=== PATIENT | male | born 1980 | race Caucasian/White ===

== ENCOUNTER 2018-11-13 04:32 | Emergency (ER) | payer BC, OTHER ==
[~2018-11-13] VITALS: Ht 157.5 cm; Wt 54.9 kg
[~2018-11-13 04:32] MED LIST: D-ME473S2 PO; IBUP-1542 PO; IBUP-1561 PO
[2018-11-13 04:38] VITALS: BP 132/78; PULSE 106; RESP 18; Ht 157.5 cm; Wt 54.9 kg
[2018-11-13] MEDS ORDERED: IBUPROFEN 200 MG TAB PO ONE (05:30)
[2018-11-13] MEDS ORDERED: PROMETHAZINE/DM (CUP) PO ONE (05:30)
== END 2018-11-13 05:54 | disposition home or self-care (01) ==
LOC: FTE 04:32
DX: J06.9 Acute upper respiratory infection, unspecified (principal); J02.9 Acute pharyngitis, unspecified
CPT/HCPCS: Z7502; Z7610; 99283